=== PATIENT | female | born 1965 | race Caucasian/White ===

== ENCOUNTER 2018-09-23 07:56 | Day surgery (SDC) | payer BC ==
[~2018-09-23 07:56] MED LIST: ACETAMINOPHEN 1,000 MG/100 ML BTL IV ONE
[2018-09-23] MEDS ORDERED: FENTANYL PF 100MCG/2ML VIAL IV ONE (07:57)
[2018-09-23] MEDS ORDERED: SCOPOLAMINE 1 PATCH TDSY TD ONE (07:57)
[2018-09-23] MEDS ORDERED: DESFLURANE 240 ML BTL INH ONE (07:57)
[2018-09-23] MEDS ORDERED: MIDAZOLAM HCL 2MG/2ML VIAL IV ONE (07:57)
[2018-09-23] MEDS ORDERED: LIDOCAINE 2% MDV (20MG/ML) 20ML VIAL IV ONE (07:57)
[2018-09-23] MEDS ORDERED: ONDANSETRON HCL IV 4 MG/2 ML VIAL IVP ONE (07:57)
[2018-09-23] MEDS ORDERED: BUPIVACAINE 0.25% W/EPI MPF 30ML VIAL IVP ONE (07:57)
[2018-09-23] MEDS ORDERED: DEXAMETHASONE 4 MG/ML 1ML VIAL IVP ONE (07:57)
[2018-09-23] MEDS ORDERED: PROPOFOL 10 MG/ML VIAL IV ONE (07:57)
--- NOTE | 2018-09-24 13:00 | Operative Note ---
DATE OF SURGERY: 09/23/2018 Surgeon: Santhosh Pierce DO PREOPERATIVE DIAGNOSIS: Torn medial meniscus of the right knee. POSTOPERATIVE DIAGNOSES: 1. Torn medial meniscus, right knee. 2. Chondromalacia of the patella, right knee. OPERATION: Arthroscopic partial medial meniscectomy, right knee. DESCRIPTION OF PROCEDURE: This 53-year-old female was taken to the operating room and placed in the supine position on the operating room table where general anesthesia was induced. The right lower extremity was elevated, exsanguinated, and the tourniquet inflated to 300 mmHg. Arthroscopic knee santa applied. Right knee prepped with Hibiclens and draped in the usual sterile fashion. An inferolateral portal was established for the 4 mm arthroscope, and initial evaluation of the joint demonstrated grade 2 chondromalacia of both the medial and lateral facets of the patella. Through an inferomedial portal, we probed the articular cartilage which did not reveal any gross instability. It was not further disturbed. The trochlea appeared to be pristine with no abnormalities being identified. The medial compartment was entered, and a complex tear of the posterior horn of the medial meniscus was present. This had both flap and horizontal cleavage components. Utilizing the basket forceps, we resected unstable fragments of the meniscus which was approximately 50% of the depth of the meniscus. The root of the meniscus was intact. The articular cartilage of the medial compartment appeared essentially normal. We then switched the scope to the inferomedial part of the inferomedial portal and we completed the resection of the medial meniscus from the lateral portal and smoothed and contoured that meniscus with the rotating shaver. It was then re-probed and confirmed to be stable. The intracondylar notch was examined and found to be normal. The lateral compartment was entered, and the articular cartilage of the lateral compartment and meniscus of the lateral compartment appeared to be totally normal. The joint was then copiously irrigated with lactated Ringer's solution and suctioned. The instruments were removed. The portals infiltrated with 0.25% Marcaine with epinephrine. Sterile dressings applied. Tourniquet and knee santa released, and the patient taken to the recovery room in satisfactory condition. GROSS PATHOLOGY: This patient demonstrated degenerative change of the patella with grade 2 chondromalacia of both the medial and lateral facets of the patella but not grossly unstable and not further disturbed. The medial meniscus demonstrated a complex tear as described above. CC: MD LANDON Mata
== END 2018-09-23 11:55 | disposition home or self-care (01) ==
LOC: SUR 07:56
PROVIDERS: ATTEND Orthopaedic Surgery
DX: S83.231A Complex tear of medial meniscus, current injury, right knee, initial encounter (principal); M22.41 Chondromalacia patellae, right knee; J45.909 Unspecified asthma, uncomplicated
CPT/HCPCS: 29881; 01400; 81025; J2405; J3010